=== PATIENT | female | born 1930 | race Caucasian/White ===

== ENCOUNTER 2016-11-01 19:53 | Outpatient (CLI) ==
[2016-11-01 23:13] VITALS: BMI 27.1
== END 2016-11-01 19:54 | disposition home or self-care (01) ==
LOC: AMBL 19:53
PROVIDERS: ATTEND Internal Medicine Geriatric Medicine
DX: M25.562 Pain in left knee (principal)

== ENCOUNTER 2016-11-01 20:00 | Inpatient (IN) | payer OTHER ==
--- NOTE | 2016-11-01 20:31 | ED.PDOC ---
General ED Provider: Dr. HERBER REMY Chief Complaint: Knee Pain/Injury Stated Complaint: Patient is an 86 year old female who has a history of left knee pain and is in a brace states that her knee today gave out and wanted to get it checked out. Time Seen by Physician: 20:15 Mode of Arrival: Ambulance Information Source: Patient, EMT Exam Limitations: No limitations Nursing and Triage Documentation Reviewed and Agree: Yes Review of Systems - Review Of Systems Constitutional: Reports: No symptoms Eyes: Reports: No symptoms Ears, Nose, Mouth, Throat: Reports: No symptoms Respiratory: Reports: No symptoms Cardiac: Reports: No symptoms GI: Reports: No symptoms : Reports: No symptoms Musculoskeletal: Reports: Joint pain Skin: Reports: No symptoms Neurological: Reports: No symptoms Endocrine: Reports: No symptoms Hematologic/Lymphatic: Reports: No symptoms All Other Systems: Reviewed and Negative Past Medical History - Past Medical History Previously Healthy: Yes Endocrine: Reports: Dyslipidemia Cardiovascular: Reports: Hypertension Respiratory: Reports: None Hematological: Reports: None Gastrointestinal: Reports: None Genitourinary: Reports: None Neuro/Psych: Reports: None Musculoskeletal: Reports: None Cancer: Reports: None Last Menstrual Period: PT HAS HAD A HYSTERECTOMY - Surgical History General Surgical History: Reports: Hysterectomy, Tonsillectomy, Orthopedic ( left knee, right Knee ), Stent Placement - Family History Family History: Reports: Unknown - Social History Smoking Status: Never smoker Hx Substance Use: No Alcohol Screening: None - Immunizations Tetanus Shot up to Date: Yes Physical Exam - Physical Exam Appearance: Ill-appearing Ill-appearing: Mild Pain Distress: Severe Neck: Supple Respiratory: Airway patent, Breath sounds clear, Breath sounds equal, Respirations nonlabored Cardiovascular: RRR, Pulses normal, No rub, No murmur Musculoskeletal: Limited ROM (Left knee ) Skin: Warm, Dry Psychiatric: Affect appropriate, Mood appropriate Critical Care Note - Critical Care Note Total Time (mins): 0 Course - Course Hematology/Chemistry: 11/02/16 05:15 11/02/16 05:15 Orders, Labs, Meds: Orders Category Date Time Status ADMIT PATIENT INPATIENT .TO [facility] (NON-MONITORED ADMISSION 11/01/16 22: 21 Active BED) OXYGEN Routine CARDIO 11/01/16 22:21 Active ACTIVITY .Early Mobilization for VTE Prevention CARE 11/01/16 22:24 Completed INTAKE & OUTPUT Q8HR CARE 11/01/16 22:21 Completed VITAL SIGNS Q4HR CARE 11/01/16 22:23 Completed 2 GRAM SODIUM DIET DIETARY 11/01/16 Breakfast Ordered BASIC METABOLIC PANEL DAILY@0600 LAB 11/02/16 05:15 Completed BASIC METABOLIC PANEL DAILY@0600 LAB 11/03/16 06:00 Ordered BASIC METABOLIC PANEL DAILY@0600 LAB 11/04/16 06:00 Ordered BASIC METABOLIC PANEL DAILY@0600 LAB 11/05/16 06:00 Ordered BASIC METABOLIC PANEL DAILY@0600 LAB 11/06/16 06:00 Ordered BASIC METABOLIC PANEL DAILY@0600 LAB 11/07/16 06:00 Ordered BASIC METABOLIC PANEL DAILY@0600 LAB 11/08/16 06:00 Ordered BASIC METABOLIC PANEL DAILY@0600 LAB 11/09/16 06:00 Ordered BASIC METABOLIC PANEL DAILY@0600 LAB 11/10/16 06:00 Ordered BASIC METABOLIC PANEL DAILY@0600 LAB 11/11/16 06:00 Ordered BASIC METABOLIC PANEL DAILY@0600 LAB 11/12/16 06:00 Ordered BASIC METABOLIC PANEL DAILY@0600 LAB 11/13/16 06:00 Ordered BASIC METABOLIC PANEL DAILY@0600 LAB 11/14/16 06:00 Ordered BASIC METABOLIC PANEL DAILY@0600 LAB 11/15/16 06:00 Ordered BASIC METABOLIC PANEL DAILY@0600 LAB 11/16/16 06:00 Ordered BASIC METABOLIC PANEL DAILY@0600 LAB 11/17/16 06:00 Ordered BASIC METABOLIC PANEL DAILY@0600 LAB 11/18/16 06:00 Ordered BASIC METABOLIC PANEL DAILY@0600 LAB 11/19/16 06:00 Ordered BASIC METABOLIC PANEL DAILY@0600 LAB 11/20/16 06:00 Ordered BASIC METABOLIC PANEL DAILY@0600 LAB 11/21/16 06:00 Ordered CBC W/ AUTO DIFF DAILY@0600 LAB 11/02/16 05:15 Completed CBC W/ AUTO DIFF DAILY@0600 LAB 11/03/16 06:00 Ordered CBC W/ AUTO DIFF DAILY@0600 LAB 11/04/16 06:00 Ordered CBC W/ AUTO DIFF DAILY@0600 LAB 11/05/16 06:00 Ordered CBC W/ AUTO DIFF DAILY@0600 LAB 11/06/16 06:00 Ordered CBC W/ AUTO DIFF DAILY@0600 LAB 11/07/16 06:00 Ordered CBC W/ AUTO DIFF DAILY@0600 LAB 11/08/16 06:00 Ordered CBC W/ AUTO DIFF DAILY@0600 LAB 11/09/16 06:00 Ordered CBC W/ AUTO DIFF DAILY@0600 LAB 11/10/16 06:00 Ordered CBC W/ AUTO DIFF DAILY@0600 LAB 11/11/16 06:00 Ordered CBC W/ AUTO DIFF DAILY@0600 LAB 11/12/16 06:00 Ordered CBC W/ AUTO DIFF DAILY@0600 LAB 11/13/16 06:00 Ordered CBC W/ AUTO DIFF DAILY@0600 LAB 11/14/16 06:00 Ordered CBC W/ AUTO DIFF DAILY@0600 LAB 11/15/16 06:00 Ordered CBC W/ AUTO DIFF DAILY@0600 LAB 11/16/16 06:00 Ordered CBC W/ AUTO DIFF DAILY@0600 LAB 11/17/16 06:00 Ordered CBC W/ AUTO DIFF DAILY@0600 LAB 11/18/16 06:00 Ordered CBC W/ AUTO DIFF DAILY@0600 LAB 11/19/16 06:00 Ordered CBC W/ AUTO DIFF DAILY@0600 LAB 11/20/16 06:00 Ordered CBC W/ AUTO DIFF DAILY@0600 LAB 11/21/16 06:00 Ordered Morphine Sulfate [Morphine 2 mg/ml Syringe] MEDS 11/01/16 22:21 Active 2 mg IVP Q4H PRN Ondansetron HCl/Pf [Zofran 4 mg/2 ml] MEDS 11/01/16 22:21 Active 4 mg IVP Q6H PRN RESUSCITATION STATUS Routine OTHERS 11/01/16 22:21 Ordered KNEE, LEFT 1 OR 2 VIEWS Stat RADS 11/01/16 21:16 Completed KNEE, LEFT 4 VIEWS Stat RADS 11/01/16 20:14 Completed PT CONSULT Routine THERAPIES 11/01/16 Ordered Medications Generic Name Dose Route Start Last Admin Trade Name Freq PRN Reason Stop Dose Admin Acetaminophen 650 mg 11/01/16 22:29 Tylenol PO Q6H PRN Fever or mild pain Acetaminophen/Hydrocodone Bitart 1 tab 11/01/16 22:29 [place] 7.5-325 PO Q4H PRN breakthrough pain Aspirin 81 mg 11/02/16 08:00 11/02/16 08:46 Aspirin Ec PO 81 mg DAILYWM JESSICA Administration Atorvastatin Calcium 40 mg 11/02/16 09:00 11/02/16 08:47 Lipitor PO 40 mg DAILY JESSICA Administration Bumetanide 1 mg 11/02/16 09:00 11/02/16 08:46 Bumex PO 1 mg BID JESSICA Administration Docusate Sodium 100 mg 11/02/16 09:00 11/02/16 08:47 Colace PO 100 mg BID JESSICA Administration Methadone HCl 10 mg 11/02/16 09:00 11/02/16 08:51 Methadone PO 10 mg BID JESSICA Administration Metoprolol Tartrate 50 mg 11/02/16 09:00 11/02/16 08:47 Lopressor PO 50 mg BID JESSICA Administration Morphine Sulfate 2 mg 11/01/16 22:21 Morphine 2 Mg/Ml Syringe IVP Q4H PRN Severe Pain Ondansetron HCl 4 mg 11/01/16 22:21 Zofran 4 Mg/2 Ml IVP Q6H PRN Nausea / Vomiting Pantoprazole Sodium 40 mg 11/02/16 09:00 11/02/16 08:46 Protonix PO 40 mg QDAC JESSICA Administration Polyethylene Glycol 17 gm 11/02/16 09:00 11/02/16 08:49 Miralax PO Not Given BID [facility] Saccharomyces Boulardii 250 mg 11/02/16 09:00 11/02/16 08:47 Florastor PO 250 mg BID JESSICA Administration Sennosides 17.2 mg 11/02/16 09:00 11/02/16 08:46 Senna PO 17.2 mg DAILY JESSICA Administration Vital Signs: Temp Pulse Resp BP Pulse Ox 11/01/16 20:01 99.1 F 79 24 132/84 95 Departure - Departure Time of Disposition: 23:55 Disposition: ADMITTED INPATIENT Discharge Problem: Injury of knee Closed dislocation of patella Qualifiers: Encounter type: initial encounter Laterality: left Qualifier Code: (S83.005A) Unspecified dislocation of left patella, initial encounter Condition: Fair Pt referred to PMD for follow-up: No (admitted ) Allergies/Adverse Reactions: Allergies No Known Drug Allergies Adverse Reaction (Verified 11/01/16 20:40) Home Medications: Ambulatory Orders Acetaminophen [Pain Relief] 650 mg PO Q6H PRN 11/01/16 Aspirin [Aspirin EC] 81 mg PO DAILYWM 11/01/16 Atorvastatin Calcium [Lipitor] 40 mg PO DAILY 11/01/16 Bumetanide 1 mg PO BID 11/01/16 Docusate Sodium [Colace] 100 mg PO BID 11/01/16 Hydrocodone/Acetaminophen [Hydrocodon-Acetaminoph 7.5-325] 1 tab PO Q4H PRN 06/19 Meclizine HCl [Antivert] 25 mg PO TID PRN 11/01/16 Methadone HCl [Methadone] 1 - 2 tab PO DAILY 11/01/16 Metoprolol Tartrate [Lopressor] 50 mg PO BID 11/01/16 Pantoprazole Sodium [Protonix] 40 mg PO DAILY 11/01/16 Polyethylene Glycol 3350 [Miralax] 17 gm PO BID 11/01/16 Potassium Chloride [K-Dur] 20 meq PO ONCE 11/01/16 Saccharomyces Boulardii [Florastor] 250 mg PO BID 11/01/16 Sennosides [Ex-Lax Maximum Strength] 25 mg PO DAILY 11/01/16 Warfarin Sodium [Coumadin] 5 mg PO DAILY 11/01/16
[2016-11-01] MEDS ORDERED: ZOFRAN 4 MG/2 ML IVP PRN (22:21)
[2016-11-01] MEDS ORDERED: MORPHINE 2 MG/ML SYRINGE IVP PRN (22:21)
[2016-11-01] MEDS ORDERED: NORCO 7.5-325 PO PRN (22:29)
[2016-11-01] MEDS ORDERED: TYLENOL PO PRN (22:29)
[2016-11-01 23:13] VITALS: BMI 27.1
[2016-11-02 05:40] LABS: BASOPHILS % (AUTO) 0.3 % (0.0-3.0); EOSINOPHILS # (AUTO) 0.1 K/ul (0.0-0.7); EOSINOPHILS % (AUTO) 1.3 % (0.0-7.0); HEMATOCRIT 32.6 % (37.0-47.0); HEMOGLOBIN 10.3 g/dl (12.0-16.0); IMMATURE GRANULOCYTE % (AUTO) 0.3 % (0.0-5.0); LYMPHOCYTES % (AUTO) 10.7 (10.0-50.0); MEAN CORPUSCULAR HEMOGLOBIN 28.5 pg (27.0-31.0); MEAN CORPUSCULAR HGB CONC 31.6 (31.8-35.4); MEAN CORPUSCULAR VOLUME 90.1 fl (81.0-99.0); MONOCYTES # (AUTO) 0.7 K/uL (0.4-2.0); MONOCYTES % (AUTO) 7.5 (0-10); NEUTROPHILS # (AUTO) 7.1 K/ul (2.0-6.9); NEUTROPHILS % (AUTO) 79.9; PLATELET COUNT 139 10^3/uL (140-440); RED BLOOD COUNT 3.62 10^6/ul (4.20-5.40); WHITE BLOOD COUNT 8.91 K/ul (4.6-10.2)
[2016-11-02 05:58] LABS: ANION GAP 14.2; BUN/CREATININE RATIO 33.57; CREATININE 1.37 mg/dL (0.60-1.30); POTASSIUM 5.2 mmol/L (3.5-5.10)
[2016-11-02 06:07] LABS: PROTHROMBIN TIME 44.8 SEC (9.3-11.0)
--- NOTE | 2016-11-02 07:30 | DI ---
EXAM: Radiographs, left knee HISTORY: Left knee pain. COMPARISON: None available. TECHNIQUE: Four views. FINDINGS: Left total knee arthroplasty hardware components, including patellar component are noted. There is lateral dislocation of the patella. There is also mild lateral subluxation of the tibia with respect to the femur with widening of the lateral compartment joint space. No acute fracture i dentified. Joint effusion is present. Extensive atherosclerotic calcifications noted. IMPRESSION: 1. Lateral patellar dislocation. 2. Mild lateral tibial subluxation.
--- NOTE | 2016-11-02 07:33 | DI ---
EXAM: Radiographs, left knee HISTORY: Status post reduction. COMPARISON: Earlier the same day at 2018 hours. TECHNIQUE: Two views. FINDINGS/IMPRESSION: Persistent lateral dislocation of the patella and mild lateral subluxation of the tibia with respect to the femur again noted. No new osseous findings identified.
[2016-11-02] MEDS: PROTONIX PO SCH (08:46)
[2016-11-02] MEDS: SENNA PO SCH (08:46)
[2016-11-02] MEDS: ASPIRIN EC PO SCH (08:46)
[2016-11-02] MEDS: BUMEX PO SCH ×2 (08:46→20:35)
[2016-11-02] MEDS: LIPITOR PO SCH (08:47)
[2016-11-02] MEDS: LOPRESSOR PO SCH ×2 (08:47→20:35)
[2016-11-02] MEDS: FLORASTOR PO SCH ×2 (08:47→20:35)
[2016-11-02] MEDS: COLACE PO SCH ×2 (08:47→20:35)
[2016-11-02] MEDS: MIRALAX PO SCH ×2 (08:49→20:37)
[2016-11-02] MEDS: METHADONE PO SCH ×2 (08:51→20:35)
[2016-11-02] MEDS ORDERED: K-DUR PO SCH (09:00)
[2016-11-02] MEDS ORDERED: SENNOSIDES 25 MG PO SCH (09:00)
[2016-11-02] MEDS ORDERED: METHADONE HCL PO SCH (09:00)
[2016-11-02] MEDS ORDERED: NON-FORMULARY MEDICATION (Atorvastatin Calcium [Lipitor] 40 MG) PO SCH ×22 (09:00)
[2016-11-02] MEDS: ANTIVERT PO PRN (14:59)
[2016-11-02] MEDS ORDERED: COUMADIN PO SCH (17:00)
[2016-11-03 04:58] LABS: BASOPHILS # (AUTO) 0.1 K/uL (0-0.2); BASOPHILS % (AUTO) 0.5 % (0.0-3.0); EOSINOPHILS # (AUTO) 0.2 K/ul (0.0-0.7); EOSINOPHILS % (AUTO) 1.5 % (0.0-7.0); IMMATURE GRANULOCYTE % (AUTO) 0.3 % (0.0-5.0); LYMPHOCYTES # (AUTO) 1.1 K/uL (0.60-3.4); LYMPHOCYTES % (AUTO) 10.9 (10.0-50.0); MEAN CORPUSCULAR HEMOGLOBIN 28.4 pg (27.0-31.0); MEAN CORPUSCULAR HGB CONC 31.6 (31.8-35.4); MEAN CORPUSCULAR VOLUME 89.8 fl (81.0-99.0); MONOCYTES % (AUTO) 9.2 (0-10); NEUTROPHILS % (AUTO) 77.6; PLATELET COUNT 150 10^3/uL (140-440); RED BLOOD COUNT 4.23 10^6/ul (4.20-5.40); WHITE BLOOD COUNT 10.33 K/ul (4.6-10.2)
[2016-11-03 05:20] LABS: ANION GAP 16.8; BUN/CREATININE RATIO 29.28; CALCIUM 9.5 mg/dL (8.2-10.2); CREATININE 1.4 mg/dL (0.60-1.30); POTASSIUM 4.8 mmol/L (3.5-5.10)
[2016-11-03] MEDS: PROTONIX PO SCH (05:59)
[2016-11-03 08:07] LABS: PROTHROMBIN TIME 29.5 SEC (9.3-11.0)
[2016-11-03] MEDS: BUMEX PO SCH ×2 (08:51→21:34)
[2016-11-03] MEDS: ASPIRIN EC PO SCH (08:51)
[2016-11-03] MEDS: METHADONE PO SCH ×2 (08:51→21:34)
[2016-11-03] MEDS: SENNA PO SCH (08:51)
[2016-11-03] MEDS: COLACE PO SCH ×2 (08:51→21:34)
[2016-11-03] MEDS: LIPITOR PO SCH (08:51)
[2016-11-03] MEDS: FLORASTOR PO SCH ×2 (08:52→21:33)
[2016-11-03] MEDS: LOPRESSOR PO SCH ×2 (08:52→21:34)
[2016-11-03] MEDS: MIRALAX PO SCH ×2 (08:52→21:35)
[2016-11-03] MEDS: ANTIVERT PO PRN (09:13)
[2016-11-03 11:25] LABS: BILIRUBIN,URINE Negative (NEGATIVE); KETONES,URINE Negative (NEGATIVE); LEUKOCYTE ESTERASE ,URINE Negative (NEGATIVE); NITRITE,URINE Negative (NEGATIVE); PROTEIN,URINE Negative (NEGATIVE); URINE, BLOOD Trace-intact (NEGATIVE)
[2016-11-03 11:26] LABS: ADD URINE MICROSCOPIC YES
[2016-11-04 04:46] LABS: BASOPHILS % (AUTO) 0.2 % (0.0-3.0); EOSINOPHILS # (AUTO) 0.1 K/ul (0.0-0.7); EOSINOPHILS % (AUTO) 1.4 % (0.0-7.0); HEMATOCRIT 34.9 % (37.0-47.0); HEMOGLOBIN 11.3 g/dl (12.0-16.0); IMMATURE GRANULOCYTE % (AUTO) 0.2 % (0.0-5.0); LYMPHOCYTES % (AUTO) 11.6 (10.0-50.0); MEAN CORPUSCULAR HEMOGLOBIN 28.6 pg (27.0-31.0); MEAN CORPUSCULAR HGB CONC 32.4 (31.8-35.4); MEAN CORPUSCULAR VOLUME 88.4 fl (81.0-99.0); MONOCYTES # (AUTO) 0.7 K/uL (0.4-2.0); NEUTROPHILS # (AUTO) 6.9 K/ul (2.0-6.9); NEUTROPHILS % (AUTO) 78.6; PLATELET COUNT 149 10^3/uL (140-440); RED BLOOD COUNT 3.95 10^6/ul (4.20-5.40); WHITE BLOOD COUNT 8.74 K/ul (4.6-10.2)
[2016-11-04 04:56] LABS: PROTHROMBIN TIME 18.9 SEC (9.3-11.0)
[2016-11-04 05:05] LABS: ANION GAP 16.5; BUN/CREATININE RATIO 29.29; CALCIUM 9.2 mg/dL (8.2-10.2); CREATININE 1.57 mg/dL (0.60-1.30); POTASSIUM 4.5 mmol/L (3.5-5.10)
[2016-11-04] MEDS: PROTONIX PO SCH (05:38)
[2016-11-04] MEDS: ASPIRIN EC PO SCH (09:01)
[2016-11-04] MEDS: BUMEX PO SCH (09:01)
[2016-11-04] MEDS: FLORASTOR PO SCH (09:02)
[2016-11-04] MEDS: LOPRESSOR PO SCH (09:02)
[2016-11-04] MEDS: MIRALAX PO SCH (09:02)
[2016-11-04] MEDS: COLACE PO SCH (09:02)
[2016-11-04] MEDS: LIPITOR PO SCH (09:02)
[2016-11-04] MEDS: METHADONE PO SCH (09:03)
[2016-11-04] MEDS: SENNA PO SCH (09:03)
--- NOTE | 2016-11-04 09:32 | PCM.PROG ---
Attending Provider: ATTENDING PROVIDER: Dr. JOE TOURE DATE OF SERVICE: 11/04/16 SUBJECTIVE: This 86 year old WHITE/ F was hospitalized 11/01/16. The patient is sitting on the side of the bed. The patient is walking with a walker. She still has pain in the left knee. Case Management will schedule outpatient Orthopaedic Consult with Dr. Georgina Krishnan. PT/INR is normal. Will resume Coumadin at 5 mg. The patient will be discharged back to [facility] [place] for PT and OT. REVIEW OF SYSTEMS: CONSTITUTIONAL: No fever, no chills. ENDOCRINE: No weight loss or weight gain. HEENT: No sinus drainage, no sore throat. CVS: No angina symptoms. No CHF symptoms. No palpitations. No atypical chest pain for CAD. No shortness of breath. RESPIRATORY: No cough, no hemoptysis. GI: No melena. No abdominal pain. No nausea, no vomiting. : No hematuria. No polyuria. SKIN: No rash. No open wounds. MUSCULOSKELETAL: Pain left knee. WOOD HEEL FLAP TRIMMER: No blackout, no dizziness. No headache. No double vision. PSYCHIATRIC: Not anxious; no depression. No suicidal thoughts. No homicidal thoughts. PHYSICAL EXAMINATION: GENERAL: Sitting on the side of bed in no distress. VITAL SIGNS: Temperature 97.5 F, Pulse 70, Respiratory Rate 16, BP 109/77, Pulse Ox 95% HEENT: Normocephalic, atraumatic. Mucosa is dry, pallor positive. No scleral icterus. NECK: No JVP, no carotid bruit. No lymphadenopathy. CARDIAC: S1, S2, no S3. No murmur, gallop or regurgitation. LUNGS: Clear to auscultation. ABDOMEN: Soft, non-tender. Bowel sounds active. No rigidity, guarding or CVA tenderness. EXTREMITIES: No clubbing, cyanosis or edema. Range of motion of left knee decreased. Pain left knee. NEUROLOGIC: Awake, alert and oriented x3. LYMPHATIC: No palpable lymph nodes SKIN: Not dry. Intact. MUSCULOSKELETAL: No joint swelling. LAB REVIEW: 11/04/16 04:40 11/04/16 04:40 11/04/16 04:40: WBC 8.74, RBC 3.95 L, Hgb 11.3 L, Hct 34.9 L, MCV 88.4, MCH 28.6 , MCHC 32.4, RDW Coeff of Jg 14.5, Plt Count 149, Immature Gran % (Auto) 0.2, Neut % (Auto) 78.6, Lymph % (Auto) 11.6, [place] % (Auto) 8.0, Eos % (Auto) 1.4, Baso % (Auto) 0.2, Immature Gran # (Auto) 0.0, Neut # 6.9, Lymph # 1.0, [place] # 0.7, Eos # 0.1, Baso # 0.0, PT 18.9 H D, INR 1.83, Sodium 138, Potassium 4.5, Chloride 92 L, Carbon Dioxide 34 H, Anion Gap 16.5, BUN 46 H, Creatinine 1.57 H , Estimated GFR (MDRD) 31.00, BUN/Creatinine Ratio 29.29, Glucose 100, Calcium 9.2 11/03/16 11:00: Urine Color Yellow, Urine Clarity Clear, Urine pH 5.0, Ur Specific Cyrus 1.010, Urine Protein Negative, Urine Glucose (UA) Negative, Urine Ketones Negative, Urine Blood Trace-intact, Urine Nitrite Negative, Urine Bilirubin Negative, Urine Urobilinogen 0.2, Ur Leukocyte Esterase Negative, Urine Microscopic RBC 0-2, Ur Squamous Epith Cells Not present ASSESSMENT: 1. Intractable left knee pain which is better. 2. Left knee subluxation, in brace. 3. Coumadin coagulopathy now resolved. 4. Acute on chronic renal failure. 5. Anemia. 6. Coronary artery disease status post stent. 7. Hypertension. 8. CHF. 9. Dyslipidemia. 10. [facility] anticoagulation. Per patient patient had blood clots and has been on Coumadin for a long time. PLAN: 1. Will make appointment with Dr. Georgina Krishnan at [facility]; Case Management to schedule. 2. Plan to discharge the patient back to the long term. 3. The patient will followup with Dr. Nj. 4. PT/OT consultation. 5. CBC, CMP in one week. 6. PT/INR in [address] Nj with results so he can adjust Coumadin dose. 7. Fall precautions. 8. May participate in long term activities. 9. [facility] anticoagulation side effects were discussed with the patient to include GI bleed and intracranial bleed. The patient voices understanding and is in agreement. Plan and coordination of the patient's care discussed in the presence of Application Systems Architect and nurse. CONDITION: Stable SCRIBED BY: LILA MENDOZA Supervisor Baking scribed while in presence of service performed by Dr. JOE TOURE on 11/04/16 ([id number])
[2016-11-04 10:39] VITALS: BP 101/65; TEMP 97.3
--- NOTE | 2016-11-04 11:40 | DS ---
DATE OF SERVICE: 11/04/16 FINAL DIAGNOSIS: 1. LATERAL PATELLA DISLOCATION, LEFT SIDE WITH MILD LATERAL SUBLUXATION OF THE TIBIA ON THE LEFT SIDE WITH INTRACTABLE LEFT KNEE PAIN, WHICH IS BETTER NOW. 2. COUMADIN COAGULOPATHY, RESOLVED. 3. ACUTE ON CHRONIC RENAL FAILURE, STABLE. 4. ANEMIA 5. CAD STATUS POST STENTS 6. CHF 7. HYPERTENSION 8. DYSLIPIDEMIA 9. COPD 10. HYSTERECTOMY 11. 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 NJ. The patient has an outpatient appointment with Dr. Georgina Krishnan on 11/24/16 at 11:00 a.m.; please make sure the patient goes to this appointment. MEDICATIONS AT DISCHARGE: 1. Aspirin 81 mg p.o. daily 2. Lipitor 40 mg p.o. daily 3. Bumex 1 mg p.o. b.i.d. 4. Colace 100 mg p.o. b.i.d. 5. [place] one tablet q.4hr p.r.n. 6. Meclizine 20 mg p.o. t.i.d. 7. Methadone 10 mg one to two tablets p.o. daily 8. Lopressor 50 mg p.o. b.i.d. 9. Protonix 40 mg p.o. daily 10. Miralax 17 mg p.o. b.i.d. 11. Potassium 20 mEq p.o. once 12. Florastor 250 mg p.o. b.i.d. 13. Sennosides 25 mg p.o. daily 14. Coumadin 5 mg p.o. daily NEW PRESCRIPTIONS: None DIET INSTRUCTIONS: Cardiac and healthy ACTIVITY: She may participate in jail activities and PT/OT please evaluate and treat and see the patient. The patient may walk with a walker and weight bearing on the left knee. SMOKING: N/A DISEASE SPECIFIC EDUCATION: Left knee pain/dislocation discussed with the patient in detail. HOSPITAL COURSE: Ronit Myers is an 86-year-old female admitted to [facility] after sustaining a fall at home with the left knee pain. Dr. Molina saw the patient in the emergency room which showed patella displacement and subluxation of the tibia. The patient has a history of knee surgeries. Dr. Molina tried to put the patella back and was put in a brace. The patient was having intractable pain to walk. At that time, the patient was admitted to the hospital for pain relief and help with ambulation. The patient was started on Hydrocodone. Her Methadone was continued. The patient wanted Dr. Nj to be her primary care doctor and we talked to Dr. Prado and he was gracious enough that he said he would accept the patient and begin taking care of her when she goes to jail. The physical therapist came and saw the the patient and the patient was able to ambulate with a walker. Labs showed Coumadin coagulopathy. PT/INR was 4.25. The patient is taking 5 mg of Coumadin every day. She says that she is taking Coumadin to prevent clots in her body but no documentation of when and how long she has been taking this. We were unable to get the records from the previous stay. The patient's BUN and creatinine was 46 and 1.37. I could not trace whether it was acute and chronic or chronic kidney disease. Given her condition, I assumed the patient has chronic kidney disease. The patient is on Bumex for CHF. Her leg edema is minimal at this time. She was able to ambulate with a walker and PT/INR became normal now. We are going to resume the Coumadin at [address] Nj will be following the patient during the jail rounds. TIME SPENT: More than 55 minutes today. TORI
--- NOTE | 2016-11-04 11:53 | HP ---
DATE OF SERVICE: 11/01/16 CHIEF COMPLAINT/HISTORY OF PRESENT ILLNESS: This is an 86-year-old female who was recently in [facility] for knee pain/rehabilitation. After rehabilitation, the patient went home and fell again at home. She started complaining of more pain at the left knee, came to the emergency room and was seen by Dr. Molina. She was found to have a dislocated patella in the left knee. He tried to reposition the patella and the patient was placed in a brace at that time because of the intractable pain and problems walking. The patient was admitted to the hospital for therapy and pain. REVIEW OF SYSTEMS: CONSTITUTIONAL: No fever, no chills. HEENT: Normal. ENDOCRINE: No weight gain; no weight loss. CVS: No chest pain. No PND, no orthopnea. No shortness of breath. No PND, no orthopnea. RESPIRATORY: No cough, no congestion. No hemoptysis. GI: No nausea, no vomiting. No abdominal pain. No melena. : No hematuria. No polyuria. MUSCULOSKELETAL: Left knee pain, generalized osteoarthritis. PSYCHIATRIC: Anxious being in the hospital. No depression. No suicidal thoughts. No homicidal thoughts. SKIN: Intact, no open lesions. PAST MEDICAL HISTORY: 1. Coronary artery disease 2. Hypertension 3. Dyslipidemia 4. COPD 5. Hysterectomy 6. Osteoarthritis 7. Joint replacement 8. Group Home anticoagulation - the patient is on Coumadin for history of DVT PAST SURGICAL HISTORY: 1. Bilateral knee replacement 2. Hysterectomy in the past PERSONAL HISTORY: Does not smoke. No alcohol use. She use to live at home and independent of ADLs. FAMILY HISTORY: Significant for heart problems. MEDICATIONS: (HOME) 1. Sennosides 2. Florastor 3. Potassium 4. Miralax 5. Lopressor 6. Methadone 7. Antivert 8. Hydrocodone 9. Bumetanide 10. Lipitor 11. Aspirin 12. Coumadin 13. Protonix 14. Colace ALLERGIES: NKDA PHYSICAL EXAMINATION: V/S: BP 132/84, respiratory rate 24, heart rate 79, temperature 99.1. HEENT: Atraumatic, normocephalic. No scleral icterus. Pallor positive. Mucosa dry. NECK: Supple. No JVD, no bruit. No lymphadenopathy. No thyromegaly. HEART: S1, S2 normal. No murmur. No cyanosis or clubbing. No ascites. LUNGS: Decreased breath sounds, clear to auscultation. No rales or rhonchi. ABDOMEN: Soft, nontender. Bowel sounds are active. No CVA tenderness. No rigidity or guarding. EXTREMITIES: Left knee is in brace. No cyanosis, clubbing or pedal edema. MUSCULOSKELETAL: Normal joints, no swelling. NEUROLOGIC: The patient is awake, alert oriented times three. SKIN: Intact; no open lesions. LYMPHATIC: No lymph nodes palpable. LABS: Pending. ASSESSMENT: 1. LEFT KNEE TIBIAL SUBLUXATION AND PATELLA DISLOCATION, INTRACTABLE KNEE PAIN , NOT ABLE TO WALK 2. CHRONIC OSTEOARTHRITIS 3. HYPERTENSION 4. DYSLIPIDEMIA 5. [facility] ANTICOAGULATION 6. CHRONIC KIDNEY DISEASE PLAN: 1. Admit the patient to the regular floor. 2. CBC, CMP today and daily. 3. Continue home medications. 4. No weightbearing on the left knee. 5. Will followup with the patient in daily rounds. TIME SPENT: More than 70 minutes. GINNYD
[2016-11-04] MEDS: ANTIVERT PO PRN (13:01)
--- NOTE | 2016-11-04 13:02 | PN ---
DATE OF SERVICE: 11/02/16 SUBJECTIVE: The patient was admitted with the left knee pain. The patient was requesting to see Dr. Nj. I told the nurse the call Dr. Nj and we can transfer the patient to Dr. Nj service but the Dr. Nj was courteous enough to call back to told us that I could go ahead and continue the patient's care while the patient is in the hospital and he will take over when the patient goes back to the alf. REVIEW OF SYSTEMS: CONSTITUTIONAL: No fever, no chills. HEENT: Normal. ENDOCRINE: No weight gain, no weight loss. CVS: No angina symptoms. No CHF symptoms. No palpitations. No atypical chest pain for CAD. No shortness of breath. No PND, no orthopnea. RESPIRATORY: No cough, no hemoptysis. GI: No nausea, no vomiting. No abdominal pain. : No hematuria. No polyuria. MUSCULOSKELETAL:. No joint swelling. PSYCHIATRIC: Not anxious. No depression. No suicidal thoughts. No homicidal thoughts. SKIN: Intact. No rash. PHYSICAL EXAMINATION: V/S: Blood pressure 128/80, respiratory rate 18, heart rate 73 and temperature 97.7. HEENT: Normocephalic, atraumatic. Mucosa dry. Pallor positive. No icterus. NECK: Supple. No JVD, no carotid bruit. No lymphadenopathy. LUNGS: Bilateral entry is decreased and clear to auscultation. No rales or rhonchi. HEART: S1, S2 normal. No S3. No murmur, gallop or regurgitation. ABDOMEN: Soft, nontender. Bowel sounds active. No rigidity. No rebound or guarding. No CVA tenderness. EXTREMITIES: No clubbing, cyanosis or pedal edema. Left knee in brace. MUSCULOSKELETAL: No joint swelling. NEUROLOGIC: Awake, alert, oriented times three. No focal deficit. LYMPHATIC: No lymph nodes palpable. SKIN: Intact. LABS: WBC 8.91, hgb 10.3, hct 32.6, plt count 139, INR 4.35, sodium 138, potassium 5.2 , chloride 102, bicarb 27, BUN 46, creatinine 1.37. ASSESSMENT: 1. Left knee intractable pain for the subluxation of the Tibia and patella dislocation 2. Chronic kidney disease 3. Coumadin coagulopathy 4. Anemia 5. Hypertension 6. Dyslipidemia 7. Congestive heart failure 8. The patient had CAD and status post stents in the past. 9. 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 Bilateral knee replacements PLAN: 1. Hold Coumadin 2. IV fluids 3. Continue home medication and pain medication 4. Morphine 2mg Q 4 hours PRN 5. Daily I&O's Will follow the patient in daily rounds. TIME SPENT: More than 30 minutes MTDD
--- NOTE | 2016-11-04 14:26 | PN ---
DATE OF SERVICE: 11/03/16 SUBJECTIVE: The patient was admitted with the intractable left knee pain. She found to have Coumadin Coagulopathy and chronic kidney disease and anemia. The physical therapist came and saw the patient and the patient has been walking somewhat weight barring. Not taking the Morphine, says that Methadone is helping with the pain. REVIEW OF SYSTEMS: CONSTITUTIONAL: No fever, no chills. HEENT: Normal. ENDOCRINE: No weight gain, no weight loss. CVS: No angina symptoms. No CHF symptoms. No palpitations. No atypical chest pain for CAD. No shortness of breath. No PND, no orthopnea. RESPIRATORY: No cough, no hemoptysis. GI: No nausea, no vomiting. No abdominal pain. No black tarry stools. : No hematuria. No polyuria. MUSCULOSKELETAL:. No joint swelling. PSYCHIATRIC: Not anxious. No depression. No suicidal thoughts. No homicidal thoughts. SKIN: Intact. No rash. PHYSICAL EXAMINATION: V/S: blood pressure 123/68, respiratory rate 18, heart rate 77 and temperature 97.9. HEENT: Normocephalic, atraumatic. Mucosa dry. NECK: Supple. No JVD, no carotid bruit. No lymphadenopathy. LUNGS: Decreased and clear to auscultation. No rales or rhonchi. HEART: S1, S2 normal. No S3. No murmur, gallop or regurgitation. ABDOMEN: Soft, nontender. Bowel sounds active. No rigidity. No rebound or guarding. No CVA tenderness. EXTREMITIES: No clubbing, cyanosis or pedal edema. Left knee tenderness is present, no swelling. MUSCULOSKELETAL: No joint swelling. NEUROLOGIC: Awake, alert, oriented times three. No focal deficit. LYMPHATIC: No lymph nodes palpable. SKIN: Intact. LABS: WBC 10.33, hgb 12.0, hct 38.0, plt count 150, sodium 138. potassium 4.8, chloride 95, bicarb 31, BUN 41, creatinine 1.40. ASSESSMENT: 1. Status post fall with the left tibia subluxation and patella dislocation 2. Coumadin Coagulopathy 3. Chronic kidney disease 4. CAD status post stents. 5. CHF 6. Hypertension 7. Dyslipidemia 8. group home anticoagulation with history of blood clots per patient. PLAN: 1. Will check PT INR 2. Urinalysis 3. Daily I&O's 4. Out of bed to chair activity as tolerated Will follow the patient in daily rounds. TIME SPENT: More than 30 minutes MTDD
[2016-11-04] MEDS ORDERED: COUMADIN PO SCH (17:00)
== END 2016-11-04 13:25 | DRG 563 ==
LOC: ED 20:00 → MEDSURG A 22:23
PROVIDERS: ADMIT Emergency Medicine; ATTEND Emergency Medicine
DX: S83.005A Unspecified dislocation of left patella, initial encounter (principal); D68.32 Hemorrhagic disorder due to extrinsic circulating anticoagulants; N17.9 Acute kidney failure, unspecified; S83.142A Lateral subluxation of proximal end of tibia, left knee, initial encounter; T45.515A Adverse effect of anticoagulants, initial encounter; I12.9 Hypertensive chronic kidney disease with stage 1 through stage 4 chronic kidney disease, or unspecified chronic kidney disease; N18.9 Chronic kidney disease, unspecified; D64.9 Anemia, unspecified; I25.10 Atherosclerotic heart disease of native coronary artery without angina pectoris; I50.9 Heart failure, unspecified; I10 Essential (primary) hypertension; J44.9 Chronic obstructive pulmonary disease, unspecified; Z96.653 Presence of artificial knee joint, bilateral; W19.XXXA Unspecified fall, initial encounter; Y92.009 Unspecified place in unspecified non-institutional (private) residence as the place of occurrence of the external cause; Z86.718 Personal history of other venous thrombosis and embolism; Z79.01 Long term (current) use of anticoagulants; Z95.5 Presence of coronary angioplasty implant and graft
CPT/HCPCS: 36415; 80048; 81001; 85025; 85610; 87070; 87081; 99284

== ENCOUNTER 2016-12-06 08:39 | Outpatient (CLI) | END 2016-12-06 08:40 | LOC: AMBL 08:39 | PROVIDERS: ATTEND Emergency Medicine | DX: S70.12XA Contusion of left thigh, initial encounter (principal); W19.XXXA Unspecified fall, initial encounter ==

== ENCOUNTER 2017-06-16 11:59 | Outpatient (CLI) ==
[2017-02-16 17:57] VITALS: BMI 27.8
== END 2017-06-16 12:00 | disposition short-term general hospital (02) ==
LOC: AMBL 11:59
PROVIDERS: ATTEND Internal Medicine
DX: R06.02 Shortness of breath (principal); R60.1 Generalized edema; I10 Essential (primary) hypertension; R53.1 Weakness; R53.83 Other fatigue; I87.8 Other specified disorders of veins; Z95.5 Presence of coronary angioplasty implant and graft